=== PATIENT | male | born 1955 | race Caucasian/White ===

== ENCOUNTER 2016-12-16 21:42 | Emergency (ER) | payer OTHER ==
[~2016-12-16] VITALS: Ht 177.8 cm; Wt 108.9 kg
[2016-12-16] MEDS ORDERED: ERYTHROMYCIN E3.5 G3 OPHTHALMIC (22:14)
[2016-12-16 22:55] VITALS: BP 133/84
== END 2016-12-16 22:50 | disposition home or self-care (01) ==
LOC: ER 21:42
DX: H10.9 Unspecified conjunctivitis (principal); I10 Essential (primary) hypertension; E78.5 Hyperlipidemia, unspecified; Z90.49 Acquired absence of other specified parts of digestive tract